=== PATIENT | male | born 1990 | race Caucasian/White ===

== ENCOUNTER 2016-07-02 20:07 | Emergency (ER) | payer SELFPAY ==
[2016-07-02 20:37] VITALS: BP 131/61
[2016-07-02] MEDS: Ondansetron 4 MG Tab.DIS PO ONE (20:43)
[2016-07-02] MEDS ORDERED: Take Home: Ondansetron 4 MG Tab.DIS, 2 Tab Pack PO ONE (21:13)
--- NOTE | 2016-07-03 09:36 | ER ---
Date of Service: 07/02/2016 SUBJECTIVE: Merlin presents to the emergency room with complaints of nausea. He states he has been experiencing a sore throat, fever and chills for approximately 4 days. The patient states that he has been nauseated, but has not been vomiting. He has not been experiencing any diarrhea. He states that he tried to eat at a restaurant in [place], but was not able to even eat 1 bite of his food tonight. He states that he has been eating a bland diet. He states that he has been experiencing occasional chills, but has not been checking his temperature. PAST MEDICAL HISTORY: None. MEDICATIONS: None. ALLERGIES: NKDA. REVIEW OF SYSTEMS: General: Positive for chills and unknown fever. HEENT: Positive for sore throat. Respiratory: No shortness of breath. Cardiac: Denies any substernal chest pain. No jaw, arm, neck, or back pain. Gastrointestinal: Positive for nausea, but no vomiting. No diarrhea. Neurologic: No fainting, blackouts, or lightheadedness. Musculoskeletal: Positive for myalgias and arthralgias. PHYSICAL EXAMINATION: General: This is a 26-year-old male patient, who is in no acute distress. Vital Signs: Temperature is 36.2, pulse rate is 67, blood pressure is 131/61, respiratory rate 12, and O2 saturation is 98. Skin: Warm, pink, and dry. HEENT. Head is normocephalic, atraumatic. Eyes; PERRLA. Extraocular movements are intact. Ears, TMs are clear. Mouth, oral mucosa is moist. Tonsils are mildly erythematous and cryptic. Lungs: Clear to auscultation. Heart: Regular rate and rhythm. Abdomen: Soft, nontender. There is no hepatosplenomegaly noted. There is no masses noted. Extremities: Without edema. Neurologic: He is alert and oriented answers all questions appropriately. His speech is fluent. His gait is within normal limits. RADIOGRAPHIC DATA: Influenza A and B antigen was obtained and was negative. Rapid strep was performed and was negative. Flat and upright abdominal series was obtained and there was no evidence of any air-fluid levels. No evidence of any pneumoperitoneum or other acute pathology. ASSESSMENT: Nausea secondary to viral illness. PLAN: The patient will be discharged. He was given 1 Zofran ODT here in the emergency room and was given a prescription to take 1 Zofran ODT every 8 hours as needed for nausea and vomiting. Advised him to consume a very bland diet. Consume a liquid diet throughout the day tomorrow and stated that he could advance his diet to include toast rice, bananas, and apples on Sunday. The patient is to return in the emergency room if he develops any significant recurrent vomiting or diarrhea. Follow up in the clinic in 7 to 10 days. All questions were answered. ULICESK: 07/02/2016 23:37:13 MODL: 07/03/2016 04:22:56 /[id number]
== END 2016-07-02 21:25 ==
LOC: VM.ED 20:07
DX: R11.0 Nausea (principal); B34.9 Viral infection, unspecified
CPT/HCPCS: 74020; 87081; 87804; 87880; 99283; A9270-GY

== ENCOUNTER 2016-07-16 22:05 | Emergency (ER) | payer BC ==
--- NOTE | 2016-07-16 22:10 | EDM.PDOC ---
ED HISTORY OF PRESENT ILLNESS - General Chief Complaint: Cardiovascular Problem Stated Complaint: HIGH HEART RATE Time Seen by Provider: 07/16/16 22:09 Source of Information: Reports: Patient, RN, RN notes reviewed History Limitations: Reports: No limitations - History of Present Illness INITIAL COMMENTS - FREE TEXT/NARRATIVE: Patient presents to the ED at [facility] with a one hour history of tachycardia. Patient states he was sitting on the cough watching TV, when he felt his heart beat fast. Patient states it felt as thought his heart "was going to fly out of my chest." Patient states he had the same symptoms about 2 weeks ago. He did have some nausea during the tachycardia. Denies any chest pain or SOB. No focal neurological complains. Patient denies any vomiting or diarrhea. Patient denies any weakness. No family history of cardiac issues. Symptom Onset Date: 07/16/16 Symptom Onset Time: 21:30 Timing/Duration: Reports: Improving - Related Data Allergies/ADRs: Allergies Allergy/AdvReac Type Severity Reaction Status Date / Time No Known Allergies Allergy Verified 07/16/16 22:24 Home Meds: Home Meds . [No Known Home Meds] 07/02/16 [History] Past Medical History Gastrointestinal History: Reports: Hiatal hernia Social & Family History - Tobacco Use Used Tobacco, but Quit: Yes Month Tobacco Last Used: june - Recreational Drug Use Recreational Drug Use: No ED ROS GENERAL - Review of Systems Review Of Systems: See Below Constitutional: Denies: fever, chills, weakness, diaphoresis Respiratory: Denies: shortness of breath, cough Cardiovascular: Reports: Palpitations, Other (Tachycardia). Denies: Chest pain , Dyspnea on exertion, Lightheadedness, Orthopnea GI/Abdominal: Reports: Nausea. Denies: Abdominal pain, Diarrhea, Vomiting Musculoskeletal: Reports: no symptoms Skin: Reports: no symptoms Neurological: Denies: dizziness, headache, numbness, paresthesia, tingling ED EXAM, GENERAL - Physical Exam Exam: See Below Exam Limited By: No limitations General Appearance: alert, no apparent distress Respiratory/Chest: no respiratory distress, lungs clear, normal breath sounds Cardiovascular: normal peripheral pulses, no edema, no JVD, no murmur, tachycardia Peripheral Pulses: 2+: radial (L), radial (R) GI/Abdominal: normal bowel sounds, soft, non tender, no distention Extremities: normal inspection, no pedal edema Neurological: alert, oriented, normal cognition Skin Exam: Warm, Dry, Intact, Normal color, No rash EKG INTERPRETATION EKG Date: 07/16/16 Time: 22:34 Rhythm: NSR Rate (beats/min): 94 [place]: normal P-wave: present QRS: normal ST-T: normal QT: normal HI/PQ Interval: 0.15 Comparison: NA - no prior EKG EKG Interpretation Comments: 1. Sinus Rhythm with sinus arrhythmia 2. Normal ECG 3. Interpretation based on a default age of 39 years Course - Orders/Labs/Meds Orders: Active Orders 24 hr Category Date Time Status EKG 12 Lead [EKG Documentation Completion] [RC] STAT Care 07/16/16 22:28 Active Chest 2V [CR] Stat Exams 07/16/16 22:29 Ordered Sodium Chloride 0.9% [Normal Saline] 1,000 ml Med 07/16/16 23:00 Active IV ASDIRECTED Sodium Chloride 0.9% [Saline Flush] Med 07/16/16 22:28 Active 10 ml FLUSH ASDIRECTED PRN Peripheral IV Insertion Adult [OM.PC] Routine Oth 07/16/16 22:28 Ordered Medication Orders Sodium Chloride (Normal Saline) 1,000 mls @ 999 mls/hr IV ASDIRECTED CHARLES Last Admin: 07/16/16 22:50 Dose: 999 mls/hr Sodium Chloride (Saline Flush) 10 ml FLUSH ASDIRECTED PRN PRN Reason: Keep Vein Open Labs: Laboratory Tests 07/16/16 07/16/16 07/16/16 Range/Units 22:55 22:55 22:55 WBC 8.9 (4.0-10.0) x10^3/uL RBC 5.22 (4.5-6.0) x10^6/uL Hgb 15.0 (14.0-18.0) g/dL Hct 44.0 (40.0-52.0) % MCV 84.3 (78.0-93.0) fL MCH 28.7 (26.0-32.0) pg MCHC 34.1 (32.0-36.0) g/dL RDW Coeff of Danielle 12.6 (10.0-15.0) % Plt Count 240 (130-400) x10^3/uL Neut % (Auto) 60.0 (50.0-80.0) % Lymph % (Auto) 29.2 (25.0-50.0) % [place] % (Auto) 8.8 (2.0-11.0) % Eos % (Auto) 1.9 (0.0-4.0) % Baso % (Auto) 0.1 L (0.2-1.2) % Sodium 139 (136-145) mmol/L Potassium 3.9 (3.5-5.1) mmol/L Chloride 104 (98-107) mmol/L Carbon Dioxide 28 (21-32) mmol/L BUN 15 (7-18) mg/dL Creatinine 1.1 (0.70-1.30) mg/dL Est Cr Clr Drug Dosing TNP Estimated GFR (MDRD) > 60 Glucose 121 H (74-106) mg/dL Calcium 8.7 (8.5-10.1) mg/dL Corrected Calcium 8.62 (8.5-10.1) mg/dL Phosphorus 3.0 (2.6-4.7) mg/dL Magnesium 1.8 (1.8-2.4) mg/dL Total Bilirubin 0.5 (0.2-1.0) mg/dL AST 14 L (15-37) U/L ALT 25 (16-63) U/L Alkaline Phosphatase 58 (46-116) U/L Creatine Kinase 152 (39-308) U/L Creatine Kinase Index 0.8 (0.0-4.0) % CK-MB (CK-2) 1.2 (0.0-3.6) ng/mL Troponin I < 0.017 (<=0.056) ng/mL Total Protein 7.2 (6.4-8.2) g/dL Albumin 4.1 (3.4-5.0) g/dL Globulin 3.1 Albumin/Globulin Ratio 1.32 TSH, Ultra Sensitive 0.642 (0.358-3.74) uIU/mL Urine Color (YELLOW) Urine Appearance (CLEAR) Urine pH (5.0-8.0) Ur Specific [place] Urine Protein (NEGATIVE) mg/dL Urine Glucose (UA) (NEGATIVE) mg/dL Urine Ketones (NEGATIVE) mg/dL Urine Occult Blood (NEGATIVE) Urine Nitrite (NEGATIVE) Urine Bilirubin (NEGATIVE) Urine Urobilinogen (0.2) EU/dL Ur Leukocyte Esterase (NEGATIVE) Urine RBC (NOT SEEN) /HPF Urine WBC (NOT SEEN) /HPF Ur Squamous Epith Cells (NEGATIVE) /HPF Urine Bacteria (NEGATIVE) /HPF Urine Mucus (NEGATIVE) /LPF Urine Opiates Screen (NEAGTIVE) Ur Buprenorphine Scrn (NEGATIVE) Ur Oxycodone Screen (NEGATIVE) Urine Methadone Screen (NEGATIVE) Ur Barbiturates Screen (NEGATIVE) Ur Tricyclics Screen (NEGATIVE) Ur Amphetamine Screen (NEGATIVE) U Methamphetamines Scrn (NEGATIVE) Urine MDMA Screen (NEGATIVE) U Benzodiazepines Scrn (NEGATIVE) U Cocaine Metab Screen (NEGATIVE) U Marijuana (THC) Screen (NEGATIVE) 07/17/16 07/17/16 Range/Units 00:10 00:10 WBC (4.0-10.0) x10^3/uL RBC (4.5-6.0) x10^6/uL Hgb (14.0-18.0) g/dL Hct (40.0-52.0) % MCV (78.0-93.0) fL MCH (26.0-32.0) pg MCHC (32.0-36.0) g/dL RDW Coeff of Danielle (10.0-15.0) % Plt Count (130-400) x10^3/uL Neut % (Auto) (50.0-80.0) % Lymph % (Auto) (25.0-50.0) % [place] % (Auto) (2.0-11.0) % Eos % (Auto) (0.0-4.0) % Baso % (Auto) (0.2-1.2) % Sodium (136-145) mmol/L Potassium (3.5-5.1) mmol/L Chloride (98-107) mmol/L Carbon Dioxide (21-32) mmol/L BUN (7-18) mg/dL Creatinine (0.70-1.30) mg/dL Est Cr Clr Drug Dosing Estimated GFR (MDRD) Glucose (74-106) mg/dL Calcium (8.5-10.1) mg/dL Corrected Calcium (8.5-10.1) mg/dL Phosphorus (2.6-4.7) mg/dL Magnesium (1.8-2.4) mg/dL Total Bilirubin (0.2-1.0) mg/dL AST (15-37) U/L ALT (16-63) U/L Alkaline Phosphatase (46-116) U/L Creatine Kinase (39-308) U/L Creatine Kinase Index (0.0-4.0) % CK-MB (CK-2) (0.0-3.6) ng/mL Troponin I (<=0.056) ng/mL Total Protein (6.4-8.2) g/dL Albumin (3.4-5.0) g/dL Globulin Albumin/Globulin Ratio TSH, Ultra Sensitive (0.358-3.74) uIU/mL Urine Color Yellow (YELLOW) Urine Appearance Cloudy H (CLEAR) Urine pH 7.0 (5.0-8.0) Ur Specific [place] 1.015 Urine Protein Negative (NEGATIVE) mg/dL Urine Glucose (UA) Negative (NEGATIVE) mg/dL Urine Ketones Negative (NEGATIVE) mg/dL Urine Occult Blood Moderate H (NEGATIVE) Urine Nitrite Negative (NEGATIVE) Urine Bilirubin Negative (NEGATIVE) Urine Urobilinogen 0.2 (0.2) EU/dL Ur Leukocyte Esterase Negative (NEGATIVE) Urine RBC 50-75 H (NOT SEEN) /HPF Urine WBC Not seen (NOT SEEN) /HPF Ur Squamous Epith Cells Not seen (NEGATIVE) /HPF Urine Bacteria Few H (NEGATIVE) /HPF Urine Mucus Rare H (NEGATIVE) /LPF Urine Opiates Screen Negative (NEAGTIVE) Ur Buprenorphine Scrn Negative (NEGATIVE) Ur Oxycodone Screen Negative (NEGATIVE) Urine Methadone Screen Negative (NEGATIVE) Ur Barbiturates Screen Negative (NEGATIVE) Ur Tricyclics Screen Negative (NEGATIVE) Ur Amphetamine Screen Negative (NEGATIVE) U Methamphetamines Scrn Negative (NEGATIVE) Urine MDMA Screen Negative (NEGATIVE) U Benzodiazepines Scrn Negative (NEGATIVE) U Cocaine Metab Screen Negative (NEGATIVE) U Marijuana (THC) Screen Negative (NEGATIVE) Meds: Medications Generic Name Dose Route Start Last Admin Trade Name Freq PRN Reason Stop Dose Admin Sodium Chloride 1,000 mls @ 999 mls/hr 07/16/16 23:00 07/16/16 22:50 Normal Saline IV 999 mls/hr ASDIRECTED CHARLES Administration Sodium Chloride 10 ml 07/16/16 22:28 Saline Flush FLUSH ASDIRECTED PRN Keep Vein Open Discontinued Medications Generic Name Dose Route Start Last Admin Trade Name Sera PRN Reason Stop Dose Admin Lidocaine HCl 10 ml 07/16/16 23:55 Xylocaine 2% Jelly MUCMEM 07/16/16 23:56 ONETIME ONE Ondansetron HCl 4 mg 07/16/16 23:27 07/16/16 23:37 Zofran IVPUSH 07/16/16 23:28 4 mg ONETIME STA Administration Departure - Departure Time of Disposition: 00:45 Disposition: Home, Self-Care 01 Condition: good Clinical Impression: Tachycardia, Nausea Instructions: Sinus Tachycardia, Nausea, Adult Referrals: PCP,None [Primary Care Provider] - Forms: ED Department Discharge Additional Instructions: 1. Stay well hydrated and rest 2. Avoid caffeine and tobacco 3. If symptoms reoccur, return for testing 4. Recommend finding a Primary care provider for your symptoms - Problem List Review Problem List Initiated/Reviewed/Updated: Yes - My Orders Last 24 Hours: My Active Orders 07/16/16 22:28 EKG 12 Lead [EKG Documentation Completion] [RC] STAT Sodium Chloride 0.9% [Saline Flush] 10 ml FLUSH ASDIRECTED PRN Peripheral IV Insertion Adult [OM.PC] Routine 07/16/16 22:29 Chest 2V [CR] Stat 07/16/16 23:00 Sodium Chloride 0.9% [Normal Saline] 1,000 ml IV ASDIRECTED - Assessment/Plan Last 24 Hours: My Active Orders 07/16/16 22:28 EKG 12 Lead [EKG Documentation Completion] [RC] STAT Sodium Chloride 0.9% [Saline Flush] 10 ml FLUSH ASDIRECTED PRN Peripheral IV Insertion Adult [OM.PC] Routine 07/16/16 22:29 Chest 2V [CR] Stat 07/16/16 23:00 Sodium Chloride 0.9% [Normal Saline] 1,000 ml IV ASDIRECTED
[2016-07-16] MEDS ORDERED: Sodium Chloride 0.9% 10 ML Syringe FLUSH PRN (22:28)
[2016-07-16] MEDS ORDERED: Sodium Chloride 0.9% 1,000 ML IV SCH (23:00)
[2016-07-16 23:20] LABS: CHLORIDE,CL 104 mmol/L (98-107); SODIUM,NA 139 mmol/L (136-145)
[2016-07-16] MEDS ORDERED: Ondansetron 4 MG/2 ML SDV IVPUSH STA (23:27)
[2016-07-16] MEDS ORDERED: Lidocaine 2% Jelly 10 ML Urojet MUCMEM ONE (23:55)
[2016-07-17 05:16] VITALS: BP 145/95
== END 2016-07-17 01:00 | disposition home or self-care (01) ==
LOC: VM.ED 22:05 → SUPCPDRO 22:05 → VM.ED 07-17 01:00
DX: R00.0 Tachycardia, unspecified (principal)
CPT/HCPCS: 36415; 71020; 80053; 80305; 81001; 82550; 82553; 83735; 84100; 84443; 84484; 85025; 93005; 96365; 96366; 96375; 99285; J2405; J7030